=== PATIENT | male | born 1995 | race Caucasian/White ===

== ENCOUNTER 2017-02-02 19:47 | Emergency (ER) | payer BC ==
[~2017-02-02] VITALS: Ht 185.4 cm; Wt 67.3 kg
[~2017-02-02 19:47] MED LIST: PREDNISONE20 MG PO; VENTOLIN0.09 MG IH; ZITHROMAX Z PA250 MG PO
[2017-02-02 19:52] VITALS: TEMP 99.6
[2017-02-02] MEDS ORDERED: ZYRTEC 10MG10 MG PO (19:55)
[2017-02-02 20:37] LABS: PH 5 (5-8); SQUAMOUS EPITHELIAL None Seen /hpf; URINE APPEARANCE Clear; URINE BACTERIA None Seen /hpf; URINE BILIRUBIN Negative (NEGATIVE); URINE BLOOD Negative (NEGATIVE); URINE COLOR Yellow; URINE GLUCOSE Negative (NEGATIVE); URINE KETONE 1+ (NEGATIVE); URINE RBC 0-2 /hpf; URINE UROBILINOGEN Negative (NEGATIVE); URINE WBC 0-2 /hpf
[2017-02-02 20:46] LABS: BASO % 0.7 % (0.0-2.0); EOS % 0.4 % (0-4.0); GRAN % 70.2 % (42.2-75.2); HEMATOCRIT 42.9 % (42.0-52.0); HEMOGLOBIN 15.6 g/dl (13.5-18.0); LYMPH # 1.1 (1.2-3.4); LYMPH % 18.9 % (20.0-51.0); MEAN CELL VOLUME 87 fl (80.0-100.0); MEAN CORPUSCULAR HEMOGLOBIN 32 pg (27.0-31.0); MEAN CORPUSCULAR HGB CONC 36 g/dl (33.0-37.0); MEAN PLATELET VOLUME 9.5 fl (7.4-10.4); MONO # 0.5 (0.1-0.6); MONO % 9.6 % (1.7-9.3); PLATELET COUNT 164 K/mm3 (130-400); RED BLOOD COUNT 4.94 M/mm3 (4.20-5.60); REDCELL DISTRIBUTION WIDTH-CV 11.3 % (11.5-14.5); WHITE BLOOD COUNT 5.7 K/mm3 (4.8-10.8)
[2017-02-02 20:50] LABS: ADJUSTED CALCIUM 9.2 mg/dL (8.4-10.2); ALBUMIN 4.8 gm/dL (3.5-5.0); CALCIUM 9.8 mg/dL (8.4-10.2); CREATININE, serum 1.16 mg/dL (0.66-1.25); TOTAL PROTEIN 8.3 gm/dL (6.4-8.2)
[2017-02-02 22:40] VITALS: BP 122/77; PULSE 109
[2017-02-03 01:40] LABS: CHLAMYDIA/TRACH by PCR Male NOT DETECTED; Neisseria Gon by PCR Male NOT DETECTED
== END 2017-02-02 22:41 | disposition home or self-care (01) ==
LOC: COL.ER 19:47
PROVIDERS: Emergency Medicine
DX: R10.84 Generalized abdominal pain (principal); R11.2 Nausea with vomiting, unspecified; Z20.2 Contact with and (suspected) exposure to infections with a predominantly sexual mode of transmission
CPT/HCPCS: J0696; J2550; J7030